=== PATIENT | female | born 2000 | race African-American/Black ===

== ENCOUNTER 2018-01-14 22:50 | Emergency (ER) | payer MEDICAID ==
[~2018-01-14] VITALS: Ht 160 cm; Wt 57.2 kg
[2018-01-14 22:51] VITALS: Ht 160 cm; Wt 57.2 kg
[2018-01-15 00:28] VITALS: BP 108/74
== END 2018-01-15 00:28 | disposition home or self-care (01) ==
LOC: ED 22:50
DX: J02.9 Acute pharyngitis, unspecified (principal); G43.909 Migraine, unspecified, not intractable, without status migrainosus
CPT/HCPCS: J0696; J1100; J1885